=== PATIENT | male | born 1985 | race African-American/Black ===

== ENCOUNTER 2025-06-19 18:11 | Inpatient (IN) | payer MEDICAID ==
[~2025-06-19] VITALS: Ht 180.3 cm; Wt 85.5 kg
[2025-06-19] MEDS ORDERED: AMOX-457 PO (19:08)
[2025-06-19] MEDS: HYDROCODONE/ACETAMINOPHEN 10-325 MG TABLET PO ONE (19:35)
[2025-06-19 20:26] LABS: PLATELET COUNT (AUTO) 370 K/uL (150-450); RED BLOOD CELL COUNT(AUTO) 6.10 MIL/uL (4.50-5.90); RED CELL DISTRIBUTION WIDTH 15.2 % (11.5-14.5); WHITE BLOOD COUNT (AUTO) 6.9 K/uL (4.5-11.0)
[2025-06-19 20:34] LABS: CALCIUM, TOTAL 8.5 mg/dL (8.8-10.5); CREATININE 1.30 mg/dL (0.60-1.30); GLOMERULAR FILTR. RATE CALC > 60 mL/min (>60); GLUCOSE,RANDOM 114 mg/dL (70-110); SODIUM SERUM 136 mmol/L (136-145); UREA NITROGEN, BLOOD 11 mg/dL (7-18)
[2025-06-19 20:43] LABS: TROPONIN I-HIGH SENSITIVITY 35 ng/L (<76)
[2025-06-19] MEDS ORDERED: ZOLPIDEM TARTRATE 5 MG TABLET PO PRN (22:00)
[2025-06-19] MEDS ORDERED: POTASSIUM CHL 10 MEQ/WATER 50 ML IV PRN (22:00)
[2025-06-19] MEDS ORDERED: ACETAMINOPHEN 325 MG TABLET PO PRN (22:00)
[2025-06-19] MEDS ORDERED: HYDROCODONE/ACETAMINOPHEN 5-325 MG TABLET PO PRN (22:15)
[2025-06-19 23:52] VITALS: BP 174/119; PULSE 95; RESP 18; TEMP 98.1; O2SAT 99
[2025-06-20] MEDS: MORPHINE SULFATE 2 MG/ML SYRINGE IVP PRN (00:05)
[2025-06-20 00:45] VITALS: BP 198/127; RESP 18; O2SAT 98
[2025-06-20 02:32] VITALS: BP 163/116; RESP 19; O2SAT 98
[2025-06-20 04:49] LABS: APPEARANCE,URINE CLEAR (CLEAR); GLUCOSE, URINE (UA) NEGATIVE (NEGATIVE); LEUKOCYTE ESTERASE ,URINE NEGATIVE (NEGATIVE); NITRATE,URINE NEGATIVE (NEGATIVE); OCCULT BLOOD,URINE NEGATIVE (NEGATIVE); SPECIFIC GRAVITIY, URINE 1.010 (1.003-1.030)
[2025-06-20 04:50] LABS: PH,URINE DRUG SCREEN 7.0 (5.0-8.0)
[2025-06-20 04:53] LABS: ALCOHOL, URINE DRUG SCREEN NEGATIVE (NEGATIVE); AMPHET/METH SCREEN,URINE POSITIVE (NEGATIVE); BARBITURATE SCREEN, URINE NEGATIVE (NEGATIVE); CANNABINOID SCREEN,URINE POSITIVE (NEGATIVE); COCAINE SCREEN,URINE NEGATIVE (NEGATIVE); METHADONE SCREEN, URINE NEGATIVE (NEGATIVE)
[2025-06-20 06:00] VITALS: BP 162/108; PULSE 90; RESP 19; TEMP 98.1; O2SAT 97
[2025-06-20] MEDS: POTASSIUM CHLORIDE 20 MEQ ER TABLET PO PRN (06:52)
[2025-06-20 08:45] VITALS: BP 144/96; PULSE 87; RESP 18; TEMP 98; O2SAT 97
[2025-06-20] MEDS ORDERED: FAMOTIDINE 20 MG TABLET PO SCH (09:00)
[2025-06-20] MEDS ORDERED: DOCUSATE SODIUM 100 MG CAPSULE PO SCH (09:00)
== END 2025-06-20 09:14 | disposition left against medical advice (07) | DRG 199 ==
LOC: EMS 18:11 → EDH 21:57 → 5N 23:40
PROVIDERS: ADMIT Internal Medicine; ATTEND Internal Medicine
DX: I16.1 Hypertensive emergency (principal); E87.6 Hypokalemia; S22.32XA Fracture of one rib, left side, initial encounter for closed fracture; F15.10 Other stimulant abuse, uncomplicated; I10 Essential (primary) hypertension; Z53.29 Procedure and treatment not carried out because of patient's decision for other reasons; X58.XXXA Exposure to other specified factors, initial encounter; Z91.199 Patient's noncompliance with other medical treatment and regimen due to unspecified reason; Y93.89 Activity, other specified; Y92.89 Other specified places as the place of occurrence of the external cause; Y99.8 Other external cause status
CPT/HCPCS: 71046; 80048; 80307; 81003; 84484; 85025; 93005; 96374; 99291; J0360; J2270; 36415-L1; 36415-TC